=== PATIENT | male | born 1950 | race Caucasian/White ===

== ENCOUNTER → 2020-08-29 | Outpatient (CLI) | payer MEDICARE ==
--- NOTE | 2020-08-29 21:07 | Diagnostic Imaging Report ---
Exam: Head CT without contrast History: Recent head trauma Comparison studies: None Technique: Axial images were obtained from the skull base to the vertex. Coronal and sagittal images reconstructed from the axial data. Dose modulation, iterative reconstruction, and/or weight based adjustment of the mA/kV was utilized to reduce the radiation dose to as low as reasonably achievable. Radiation dose: Total DLP: 921.4 mGy*cm. Estimated effective dose: DLP x 0.015 Intravenous contrast: None Findings: Scalp: Mild nonspecific right occipital scalp swelling. Bones: No fractures, blastic or lytic lesions. Brain sulci: Mildly prominent. Ventricles: Moderate contents dilatation. No hydrocephalus. Extra-axial spaces: No masses, no fluid collection. Parenchyma: No mass, acute hemorrhage or acute or chronic cortical insult. A few scattered hypodensities in the supratentorial white matter are nonspecific but are most compatible with chronic microvascular ischemic changes. Sellar/suprasellar region: No abnormalities. Craniocervical junction: Patent foramen magnum. No Chiari one malformation. Incidental findings: Atherosclerotic calcifications in the carotid siphons and in the right intradural vertebral artery. Chronic inflammatory changes at the left mastoid tip and within the right mastoids which are partially opacified. IMPRESSION: 1. No acute abnormalities. 2. Mild right occipital scalp swelling without underlying fracture. 3. Generalized parenchymal volume loss. 4. Mild chronic microvascular ischemic changes. Signed by: Dr. Kelvin San M.D. on 08/29/2020 9:03 PM
== END ==
LOC: CT 17:52
PROVIDERS: ATTEND Family Medicine
DX: S00.93XA Contusion of unspecified part of head, initial encounter (principal); R42 Dizziness and giddiness; R29.6 Repeated falls
CPT/HCPCS: 70450